=== PATIENT | female | born 1925 | race Caucasian/White ===

== ENCOUNTER 2016-12-18 08:09 | Emergency (ER) | payer OTHER ==
[~2016-12-18] VITALS: Ht 160 cm; Wt 71.7 kg
[~2016-12-18 08:09] MED LIST: ALDA25TA PO; AMLO5TAB2 PO; GLIP5TAB8 PO; JANU100T PO; LEVO500T32 PO; MULT1TAB8 PO; PANT40TA2 PO; SPIR25TA2 PO; TYLE325T5 PO; VITA50003 PO; XARE15TA PO; XARE20TA PO
[2016-12-18] MEDS ORDERED: IBUP200C PO (08:22)
[2016-12-18] MEDS ORDERED: ALDA25TA PO (08:22)
--- NOTE | 2016-12-18 10:18 | REP ---
LEFT FOREARM, TWO VIEWS: HISTORY: Trauma. There is no acute fracture or dislocation. The joint spaces are normal in appearance. IMPRESSION: There is no acute fracture or dislocation. Signed by Haroldo Pennington MD 12/18/2016 10:28 A
--- NOTE | 2016-12-18 10:19 | REP ---
LEFT WRIST, FOUR VIEWS: HISTORY: Fall. There is no acute fracture or dislocation. Chondrocalcinosis is present. IMPRESSION: There is no acute fracture or dislocation. Signed by Haroldo Pennington MD 12/18/2016 10:28 A
--- NOTE | 2016-12-18 10:20 | REP ---
LEFT KNEE, FIVE VIEWS: HISTORY: Fall. There is no acute fracture or dislocation. There is narrowing of the joint spaces. Osteophytes are present on the patella. Chondrocalcinosis is present. IMPRESSION: Degenerative change as described above. Signed by Haroldo Pennington MD 12/18/2016 10:28 A
--- NOTE | 2016-12-18 10:27 | REP ---
LEFT HUMERUS, THREE VIEWS: There is no acute fracture or dislocation. The joint spaces are normal in appearance. IMPRESSION: There is no acute fracture or dislocation. Signed by Haroldo Pennington MD 12/18/2016 10:28 A
[2016-12-18 10:45] VITALS: BP 170/79
== END 2016-12-18 10:55 | disposition home or self-care (01) ==
LOC: M ED 08:38
DX: S63.502A Unspecified sprain of left wrist, initial encounter (principal); S80.02XA Contusion of left knee, initial encounter; T14.8 Other injury of unspecified body region; W01.0XXA Fall on same level from slipping, tripping and stumbling without subsequent striking against object, initial encounter; Y92.099 Unspecified place in other non-institutional residence as the place of occurrence of the external cause; Y93.9 Activity, unspecified; Y99.9 Unspecified external cause status; Z79.84 Long term (current) use of oral hypoglycemic drugs; Z79.899 Other long term (current) drug therapy

== ENCOUNTER 2016-12-23 06:39 | Inpatient (IN) | payer OTHER ==
[~2016-12-23] VITALS: Ht 162.6 cm; Wt 76.1 kg
[~2016-12-23 06:39] MED LIST changes: +IBUP200C PO
[2016-12-23] MEDS ORDERED: TRAM50TA2 PO (06:56)
[2016-12-23] MEDS ORDERED: NS 1,000 ML IV SCH (07:24)
[2016-12-23 08:17] LABS: BASO % 0.1 % (0.0-1.0); EOS % 0.2 % (0.0-3.0); LARGE UNSTAINED CELL # 0.2 K/mm3 (0.0-0.4); LARGE UNSTAINED CELL % 1.1 % (0.0-4.0); LYMPH # 1.3 K/mm3 (1.5-4.5); LYMPH % 7.4 % (24.0-44.0); MEAN CORPUSCULAR HEMOGLOBIN 31.8 pg (27.0-33.0); MEAN CORPUSCULAR HGB CONC 35.2 g/dl (32.0-36.5); MEAN CORPUSCULAR VOLUME 90.2 fl (80.0-96.0); MONO # 0.9 K/mm3 (0.0-0.8); MONO % 5.6 % (0.0-5.0); NEUTROPHILS % 85.6 % (36.0-66.0); PLATELET COUNT, AUTOMATED 259 k/mm3 (150-450); RED CELL DISTRIBUTION WIDTH 12.3 % (11.5-14.5); WHITE BLOOD COUNT 15.2 K/mm3 (4.0-10.0)
[2016-12-23 08:18] LABS: INR 1.55
[2016-12-23 08:44] LABS: ALBUMIN 3.4 GM/DL (3.2-5.2); ALKALINE PHOSPHATASE 148 U/L (45-117); ALT/SGPT 22 U/L (12-78); AMYLASE 23 U/L (25-115); ANION GAP 10 MEQ/L (8-16); AST/SGOT 17 U/L (15-37); BILIRUBIN,DIRECT 0.5 MG/DL (0.0-0.2); BILIRUBIN,TOTAL 1.4 MG/DL (0.2-1.0); BLOOD UREA NITROGEN 19 MG/DL (7-18); CALCIUM LEVEL 8.8 MG/DL (8.8-10.2); CARBON DIOXIDE LEVEL 28 MEQ/L (21-32); CHLORIDE LEVEL 85 MEQ/L (98-107); CREATININE FOR GFR 0.98 MG/DL (0.55-1.02); GLOMERULAR FILTRATION RATE 56.9 (>32); GLUCOSE, FASTING 217 MG/DL (83-110); POTASSIUM SERUM 3.8 MEQ/L (3.5-5.1); SODIUM LEVEL 123 MEQ/L (136-145); TOTAL PROTEIN 6.5 GM/DL (6.4-8.2)
[2016-12-23] MEDS ORDERED: ISOVUE-370 76% 100ML VIAL (Q9967) As Ordered ONE (08:47)
[2016-12-23] MEDS ORDERED: ONDANSETRON 4MG/2ML VIAL (J2405) IV ONE (09:45)
[2016-12-23] MEDS ORDERED: MORPHINE 2 MG/ML 1ML SYRINGE IV ONE (09:45)
[2016-12-23] MEDS ORDERED: PANT40TA2 PO (09:54)
[2016-12-23] MEDS ORDERED: GLUCOSE 4 GM CHEW TABLET PO PRN (10:15)
[2016-12-23] MEDS ORDERED: DEXTROSE 50% 50 ML SYRINGE IV PRN (10:15)
[2016-12-23] MEDS ORDERED: GLUCAGON FOR INJ 1 MG VIAL (J1610) SC PRN (10:15)
[2016-12-23] MEDS ORDERED: traMADol 50 MG TAB PO PRN (10:15)
[2016-12-23] MEDS ORDERED: ONDANSETRON 4 MG TAB (S0181) PO PRN (12:00)
[2016-12-23 12:20] VITALS: BP 162/86
[2016-12-23] MEDS: HumaLOG INSULIN (NovoLOG) PER UNIT SC SCH ×3 (13:00→20:58)
[2016-12-23] MEDS: SPIRONOLACTONE 25 MG TAB PO SCH (13:03)
[2016-12-23] MEDS: NS 1,000 ML IV SCH ×2 (13:03→20:58)
[2016-12-23] MEDS: MULTIVITAMINS/MINERALS THERAP 1 TAB PO SCH (13:03)
[2016-12-23 15:16] VITALS: BP_SYST 152; BP_SYST 156; BP_SYST 159; BP_DIAS 72; BP_DIAS 73
[2016-12-23 20:00] VITALS: BP 144/67; PULSE 73
[2016-12-23] MEDS: RIVAROXABAN 20 MG TAB (XARELTO) PO SCH (20:57)
[2016-12-23] MEDS: PANTOPRAZOLE 40MG TAB (PROTONIX) PO SCH (20:57)
[2016-12-23] MEDS: ACETAMINOPHEN TAB 650MG DOSE (2X325MG) PO PRN (20:59)
[2016-12-23 23:59] VITALS: BP_SYST 136; BP_SYST 140; BP_SYST 141; BP_DIAS 65; BP_DIAS 67; BP_DIAS 81
[2016-12-24] VITALS: PULSE 69
[2016-12-24 04:00] VITALS: BP 143/67; PULSE 69
[2016-12-24 05:12] LABS: BASO % 0.3 % (0.0-1.0); EOS # 0.2 K/mm3 (0.0-0.50); EOS % 1.9 % (0.0-3.0); LARGE UNSTAINED CELL # 0.3 K/mm3 (0.0-0.4); LARGE UNSTAINED CELL % 2.5 % (0.0-4.0); LYMPH # 2.1 K/mm3 (1.5-4.5); LYMPH % 18.4 % (24.0-44.0); MEAN CORPUSCULAR HEMOGLOBIN 31.6 pg (27.0-33.0); MEAN CORPUSCULAR VOLUME 92.9 fl (80.0-96.0); MONO # 0.8 K/mm3 (0.0-0.8); MONO % 7.2 % (0.0-5.0); NEUTROPHILS % 69.8 % (36.0-66.0); PLATELET COUNT, AUTOMATED 261 k/mm3 (150-450); RED CELL DISTRIBUTION WIDTH 12.2 % (11.5-14.5); WHITE BLOOD COUNT 11.4 K/mm3 (4.0-10.0)
[2016-12-24 05:40] LABS: ANION GAP 6 MEQ/L (8-16); BLOOD UREA NITROGEN 13 MG/DL (7-18); CALCIUM LEVEL 8.6 MG/DL (8.8-10.2); CARBON DIOXIDE LEVEL 30 MEQ/L (21-32); CHLORIDE LEVEL 97 MEQ/L (98-107); GLOMERULAR FILTRATION RATE > 60.0 (>32); GLUCOSE, FASTING 147 MG/DL (83-110); POTASSIUM SERUM 3.7 MEQ/L (3.5-5.1); SODIUM LEVEL 133 MEQ/L (136-145)
[2016-12-24] MEDS: SPIRONOLACTONE 25 MG TAB PO SCH (07:59)
[2016-12-24] MEDS: SITagliptin 50 MG TAB (JANUVIA) PO SCH (07:59)
[2016-12-24] MEDS: HumaLOG INSULIN (NovoLOG) PER UNIT SC SCH ×4 (07:59→20:08)
[2016-12-24] MEDS: MULTIVITAMINS/MINERALS THERAP 1 TAB PO SCH (07:59)
[2016-12-24 08:00] VITALS: BP 152/67
[2016-12-24 12:00] VITALS: BP 152/72
[2016-12-24] MEDS: NS 1,000 ML IV SCH (15:34)
[2016-12-24 16:00] VITALS: BP 134/67
[2016-12-24 19:58] VITALS: BP 159/76
[2016-12-24] MEDS: RIVAROXABAN 20 MG TAB (XARELTO) PO SCH (21:14)
[2016-12-24] MEDS: PANTOPRAZOLE 40MG TAB (PROTONIX) PO SCH (21:14)
[2016-12-25 00:28] VITALS: BP_SYST 152; BP_SYST 155; BP_SYST 162; BP_DIAS 69; BP_DIAS 70; BP_DIAS 73
[2016-12-25 04:39] VITALS: BP 148/80
[2016-12-25] MEDS: NS 1,000 ML IV SCH (05:27)
[2016-12-25 05:45] LABS: BASO % 0.3 % (0.0-1.0); EOS # 0.1 K/mm3 (0.0-0.50); EOS % 0.9 % (0.0-3.0); LARGE UNSTAINED CELL # 0.3 K/mm3 (0.0-0.4); LARGE UNSTAINED CELL % 2.1 % (0.0-4.0); LYMPH # 2.5 K/mm3 (1.5-4.5); LYMPH % 17.7 % (24.0-44.0); MEAN CORPUSCULAR HEMOGLOBIN 31.8 pg (27.0-33.0); MEAN CORPUSCULAR HGB CONC 33.9 g/dl (32.0-36.5); MEAN CORPUSCULAR VOLUME 93.7 fl (80.0-96.0); MONO # 0.7 K/mm3 (0.0-0.8); MONO % 5.1 % (0.0-5.0); NEUTROPHILS # 10.5 K/mm3 (1.8-7.7); NEUTROPHILS % 73.9 % (36.0-66.0); PLATELET COUNT, AUTOMATED 336 k/mm3 (150-450); RED CELL DISTRIBUTION WIDTH 12.3 % (11.5-14.5); WHITE BLOOD COUNT 14.2 K/mm3 (4.0-10.0)
[2016-12-25 06:01] LABS: ANION GAP 10 MEQ/L (8-16); BLOOD UREA NITROGEN 15 MG/DL (7-18); CARBON DIOXIDE LEVEL 24 MEQ/L (21-32); CHLORIDE LEVEL 100 MEQ/L (98-107); CREATININE FOR GFR 0.81 MG/DL (0.55-1.02); GLOMERULAR FILTRATION RATE > 60.0 (>32); GLUCOSE, FASTING 176 MG/DL (83-110); SODIUM LEVEL 134 MEQ/L (136-145)
[2016-12-25 08:00] VITALS: BP 152/71
[2016-12-25] MEDS: MULTIVITAMINS/MINERALS THERAP 1 TAB PO SCH (08:37)
[2016-12-25] MEDS: SPIRONOLACTONE 25 MG TAB PO SCH (08:37)
[2016-12-25] MEDS: SITagliptin 50 MG TAB (JANUVIA) PO SCH (08:37)
[2016-12-25] MEDS: HumaLOG INSULIN (NovoLOG) PER UNIT SC SCH ×4 (08:37→20:57)
[2016-12-25] MEDS: amLODIPine 5 MG TAB PO SCH (10:06)
[2016-12-25] MEDS: LISINOPRIL 5 MG TAB PO SCH (10:06)
[2016-12-25 12:00] VITALS: BP 156/77
[2016-12-25 16:00] VITALS: BP_SYST 141; BP_SYST 148; BP_SYST 160; BP_DIAS 63; BP_DIAS 65; BP_DIAS 69
[2016-12-25] MEDS: ACETAMINOPHEN TAB 650MG DOSE (2X325MG) PO PRN (18:47)
[2016-12-25 20:37] VITALS: BP 124/56
[2016-12-25] MEDS: RIVAROXABAN 20 MG TAB (XARELTO) PO SCH (20:52)
[2016-12-25] MEDS: PANTOPRAZOLE 40MG TAB (PROTONIX) PO SCH (20:52)
[2016-12-26 00:13] VITALS: BP_SYST 123; BP_SYST 132; BP_SYST 134; BP_DIAS 58; BP_DIAS 61
[2016-12-26] MEDS: ACETAMINOPHEN TAB 650MG DOSE (2X325MG) PO PRN (03:21)
[2016-12-26 04:47] VITALS: BP 134/62
[2016-12-26 05:45] LABS: BASO % 0.4 % (0.0-1.0); EOS # 0.2 K/mm3 (0.0-0.50); EOS % 2.2 % (0.0-3.0); LARGE UNSTAINED CELL # 0.3 K/mm3 (0.0-0.4); LARGE UNSTAINED CELL % 2.4 % (0.0-4.0); LYMPH # 1.6 K/mm3 (1.5-4.5); LYMPH % 14.9 % (24.0-44.0); MEAN CORPUSCULAR HEMOGLOBIN 32.4 pg (27.0-33.0); MEAN CORPUSCULAR HGB CONC 34.4 g/dl (32.0-36.5); MEAN CORPUSCULAR VOLUME 94.3 fl (80.0-96.0); MONO # 0.7 K/mm3 (0.0-0.8); MONO % 6.1 % (0.0-5.0); NEUTROPHILS # 8.2 K/mm3 (1.8-7.7); NEUTROPHILS % 74.1 % (36.0-66.0); PLATELET COUNT, AUTOMATED 300 k/mm3 (150-450); RED CELL DISTRIBUTION WIDTH 12.4 % (11.5-14.5)
[2016-12-26 06:31] LABS: ANION GAP 8 MEQ/L (8-16); BLOOD UREA NITROGEN 16 MG/DL (7-18); CALCIUM LEVEL 8.4 MG/DL (8.8-10.2); CARBON DIOXIDE LEVEL 26 MEQ/L (21-32); CHLORIDE LEVEL 100 MEQ/L (98-107); CREATININE FOR GFR 0.79 MG/DL (0.55-1.02); GLOMERULAR FILTRATION RATE > 60.0 (>32); GLUCOSE, FASTING 158 MG/DL (83-110); POTASSIUM SERUM 3.7 MEQ/L (3.5-5.1); SODIUM LEVEL 134 MEQ/L (136-145)
[2016-12-26 08:00] VITALS: BP_SYST 150; BP_SYST 152; BP_SYST 160; BP_DIAS 70; BP_DIAS 73
[2016-12-26 08:25] VITALS: BP 150/70
[2016-12-26] MEDS: SITagliptin 50 MG TAB (JANUVIA) PO SCH (08:25)
[2016-12-26] MEDS: MULTIVITAMINS/MINERALS THERAP 1 TAB PO SCH (08:25)
[2016-12-26] MEDS: amLODIPine 5 MG TAB PO SCH (08:25)
[2016-12-26] MEDS: LISINOPRIL 5 MG TAB PO SCH (08:25)
[2016-12-26] MEDS: HumaLOG INSULIN (NovoLOG) PER UNIT SC SCH (08:26)
[2016-12-26] MEDS ORDERED: LISI-542 PO (11:35)
== END 2016-12-26 12:59 | disposition home or self-care (01) | DRG 563 ==
LOC: M ED 08:00 → M ED INP 10:15 → M PCU 12:14
PROVIDERS: ADMIT Internal Medicine; ATTEND Internal Medicine
DX: S42.295A Other nondisplaced fracture of upper end of left humerus, initial encounter for closed fracture (principal); E87.1 Hypo-osmolality and hyponatremia; I48.3 Typical atrial flutter; S62.102A Fracture of unspecified carpal bone, left wrist, initial encounter for closed fracture; E11.9 Type 2 diabetes mellitus without complications; I10 Essential (primary) hypertension; E86.1 Hypovolemia; R55 Syncope and collapse; R29.6 Repeated falls; Z79.899 Other long term (current) drug therapy; Z95.0 Presence of cardiac pacemaker; W18.30XA Fall on same level, unspecified, initial encounter; Y92.009 Unspecified place in unspecified non-institutional (private) residence as the place of occurrence of the external cause